=== PATIENT | female | born 1960 | race Caucasian/White ===

== ENCOUNTER 2016-03-12 11:19 | Emergency (ER) | payer OTHER ==
[~2016-03-12] VITALS: Ht 162.6 cm; Wt 64.0 kg
[~2016-03-12 11:19] MED LIST: GEOD60CA PO; HYDR12.57 PO; LAMI200T PO; LORA-474 PO; PROZ20CA11 PO; RISP1 PO; TRAZ100T4 PO; TRAZ50TA12 PO; ZYPR10TA PO
[2016-03-12 11:25] VITALS: BP 112/70; PULSE 89; RESP 16; TEMP 97.8; O2SAT 95
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
[2016-03-12 12:41] LABS: AUTOMATED NEUTROPHIL # 3.1 TH/MM3 (1.8-7.7); BASOPHIL % 0.7 % (0.0-2.0); EOSINOPHIL # 0.2 TH/MM3 (0-0.4); EOSINOPHIL % 3.2 % (0.0-4.0); HEMATOCRIT 40.5 % (35.0-46.0); HEMO FLAGS DIFF FINAL; LYMPH % 21.6 % (9.0-44.0); LYMPHOCYTE # 1.1 TH/MM3 (1.0-4.8); MEAN CELL VOLUME 87.3 FL (80.0-100.0); MEAN CORPUSCULAR HEMOGLOBIN 30.1 PG (27.0-34.0); MEAN CORPUSCULAR HGB CONC 34.5 % (32.0-36.0); MONO % 11.8 % (0.0-8.0); NEUT % 62.7 % (16.0-70.0); PLATELET COUNT 255 TH/MM3 (150-450); RED BLOOD COUNT 4.64 MIL/MM3 (4.00-5.30); RED CELL DISTRIBUTION WIDTH 13.4 % (11.6-17.2)
[2016-03-12 13:02] LABS: ANION GAP 6 MEQ/L (5-15)
[2016-03-12 13:06] LABS: ALKALINE PHOSPHATASE 51 U/L (45-117); ALT (GPT) 15 U/L (10-53); AST (GOT) 13 U/L (15-37); BICARBONATE 30.8 MEQ/L (21.0-32.0); BLOOD UREA NITROGEN 8 MG/DL (7-18); CHLORIDE 104 MEQ/L (98-107); GLOMERULAR FILTRATION RATE 66 ML/MIN (>89); POTASSIUM 3.6 MEQ/L (3.5-5.1); SODIUM (NA) 141 MEQ/L (136-145); TOTAL BILIRUBIN ADULT 0.3 MG/DL (0.2-1.0)
[2016-03-12 14:38] VITALS: BP 132/82; PULSE 74; RESP 18; TEMP 97.5; O2SAT 99
[2016-03-12 17:43] VITALS: BP 132/82; PULSE 74; RESP 18; O2SAT 99
== END 2016-03-12 19:05 | disposition home or self-care (01) ==
LOC: NEPJ 11:19
DX: F25.0 Schizoaffective disorder, bipolar type (principal); F41.8 Other specified anxiety disorders; F17.210 Nicotine dependence, cigarettes, uncomplicated
CPT/HCPCS: 80053; 80320; 85025; 99284

== ENCOUNTER 2016-03-19 08:55 | Emergency (ER) | payer OTHER ==
[~2016-03-19] VITALS: Ht 170.2 cm; Wt 70.0 kg
[2016-03-19 09:03] VITALS: BP 136/77; PULSE 81; RESP 17; TEMP 98.2; O2SAT 96
[2016-03-19 09:22] LABS: AUTOMATED NEUTROPHIL # 3.4 TH/MM3 (1.8-7.7); BASOPHIL % 0.4 % (0.0-2.0); EOSINOPHIL # 0.1 TH/MM3 (0-0.4); HEMATOCRIT 44.3 % (35.0-46.0); HEMO FLAGS DIFF FINAL; LYMPHOCYTE # 0.9 TH/MM3 (1.0-4.8); MEAN CELL VOLUME 87.8 FL (80.0-100.0); MEAN CORPUSCULAR HEMOGLOBIN 29.7 PG (27.0-34.0); MEAN CORPUSCULAR HGB CONC 33.8 % (32.0-36.0); MONO % 9.1 % (0.0-8.0); NEUT % 68.5 % (16.0-70.0); PLATELET COUNT 255 TH/MM3 (150-450); RED BLOOD COUNT 5.05 MIL/MM3 (4.00-5.30); RED CELL DISTRIBUTION WIDTH 13.6 % (11.6-17.2)
[2016-03-19 09:45] LABS: ALKALINE PHOSPHATASE 59 U/L (45-117); ALT (GPT) 17 U/L (10-53); ANION GAP 7 MEQ/L (5-15); AST (GOT) 23 U/L (15-37); BICARBONATE 28.6 MEQ/L (21.0-32.0); BLOOD UREA NITROGEN 8 MG/DL (7-18); CHLORIDE 103 MEQ/L (98-107); GLOMERULAR FILTRATION RATE 72 ML/MIN (>89); SODIUM (NA) 139 MEQ/L (136-145); TOTAL BILIRUBIN ADULT 0.4 MG/DL (0.2-1.0)
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
[2016-03-19] MEDS ORDERED: OLANZapine IM 10 MG VIAL IM ONE (13:00)
--- NOTE | 2016-03-19 13:08 | RADRPT ---
EXAM DATE/TIME: 03/19/2016 12:47 [facility] COMPARISON: CT BRAIN W/O CONTRAST, November 20, 2015, 12:40. INDICATIONS : Increasing falls, altered mental status. RADIATION DOSE: 35.34 CTDIvol (mGy) MEDICAL HISTORY : Cerebrovascular disease. Hypertension. SURGICAL HISTORY : None. ENCOUNTER: Initial ACUITY: 1 day PAIN SCALE: 0/10 LOCATION: cranial TECHNIQUE: Multiple contiguous axial images were obtained of the head. Using automated exposure control and adj ustment of the mA and/or kV according to patient size, radiation dose was kept as low as reasonably a chievable to obtain optimal diagnostic quality images. FINDINGS: CEREBRUM: The ventricles are normal for age. No evidence of midline shift, mass lesion, hemorrhage or acute in farction. No extra-axial fluid collections are seen. POSTERIOR FOSSA: The cerebellum and brainstem are intact. The 4th ventricle is midline. The cerebellopontine angle i s unremarkable. EXTRACRANIAL: The visualized portion of the orbits is intact. SKULL: The calvaria is intact. No evidence of skull fracture. CONCLUSION: Normal examination for a patient of this age. Gerri Hsu MD on March 19, 2016 at 13:07 Board Certified Radiologist. This report was verified electronically.
[2016-03-19 13:09] LABS: BLOOD, URINE NEG (NEG); GLUCOSE,URINE NEG (NEG); KETONE, URINE 80 mg/dL (NEG); NITRITE,URINE NEG (NEG); URINE COLOR YELLOW (YELLW/STRAW)
[2016-03-19 13:13] LABS: AMPHETAMINE, URINE NEG (NEG); BARBITURATES, URINE NEG (NEG); COCAINE, URINE NEG (NEG)
[2016-03-19] MEDS ORDERED: LORazepam 2 MG/ML VIAL IM ONE (13:15)
[2016-03-19 13:50] LABS: MUCUS URINE MOD /lpf (OCC); WBC, URINE 0-2 /hpf (0-5)
[2016-03-19 13:51] LABS: TRANSITIONAL EPI CELLS, URINE 0-5 /hpf
[2016-03-19 13:54] LABS: CULTURE IF INDICATED CULT NOT INDICATED
[2016-03-19 15:31] VITALS: BP 137/89; PULSE 73; RESP 17; O2SAT 98
== END 2016-03-19 19:00 | disposition home or self-care (01) ==
LOC: NEDAMB 08:55 → NEPJ 19:00
DX: S09.90XA Unspecified injury of head, initial encounter (principal); F31.9 Bipolar disorder, unspecified; F41.8 Other specified anxiety disorders; J44.9 Chronic obstructive pulmonary disease, unspecified; I10 Essential (primary) hypertension; F17.210 Nicotine dependence, cigarettes, uncomplicated; W19.XXXA Unspecified fall, initial encounter; Y92.009 Unspecified place in unspecified non-institutional (private) residence as the place of occurrence of the external cause; Z86.73 Personal history of transient ischemic attack (TIA), and cerebral infarction without residual deficits
CPT/HCPCS: 51702; 70450; 80053; 80307; 81001; 85025; 96372; 99285; J2060

== ENCOUNTER 2016-03-24 19:16 | Emergency (ER) | payer OTHER ==
[~2016-03-24] VITALS: Ht 170.2 cm; Wt 65.0 kg
[~2016-03-24 19:16] MED LIST changes: -TRAZ50TA12 PO
[2016-03-24 19:20] VITALS: BP 152/100; PULSE 81; RESP 16; TEMP 97.6
[2016-03-24] MEDS ORDERED: FUMARATE PO (19:33)
[2016-03-24] MEDS ORDERED: TRAZ100T4 PO (19:33)
[2016-03-24] MEDS ORDERED: QUET-86 PO (19:33)
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
[2016-03-24 20:13] LABS: BLOOD, URINE TRACE (NEG); COMMENT (UR) CULT NOT INDICATED; CULTURE IF INDICATED CULT NOT INDICATED; GLUCOSE,URINE NEG (NEG); KETONE, URINE 40 mg/dL (NEG); MUCUS URINE MANY /lpf (OCC); NITRITE,URINE NEG (NEG); SQUAMOUS EPITHELIAL CELL URINE 1 /hpf (0-5); URINE COLOR YELLOW (YELLW/STRAW)
[2016-03-24] MEDS ORDERED: OLANZapine IM 10 MG VIAL IM ONE (20:15)
[2016-03-24 20:18] LABS: AUTOMATED NEUTROPHIL # 3.2 TH/MM3 (1.8-7.7); BASOPHIL % 0.9 % (0.0-2.0); EOSINOPHIL # 0.1 TH/MM3 (0-0.4); EOSINOPHIL % 1.6 % (0.0-4.0); HEMATOCRIT 42.9 % (35.0-46.0); HEMO FLAGS DIFF FINAL; LYMPH % 26.1 % (9.0-44.0); LYMPHOCYTE # 1.4 TH/MM3 (1.0-4.8); MEAN CELL VOLUME 88.1 FL (80.0-100.0); MEAN CORPUSCULAR HEMOGLOBIN 29.5 PG (27.0-34.0); MEAN CORPUSCULAR HGB CONC 33.5 % (32.0-36.0); MONO % 10.8 % (0.0-8.0); NEUT % 60.6 % (16.0-70.0); PLATELET COUNT 295 TH/MM3 (150-450); RED BLOOD COUNT 4.87 MIL/MM3 (4.00-5.30); RED CELL DISTRIBUTION WIDTH 13.5 % (11.6-17.2); WHITE BLOOD COUNT 5.4 TH/MM3 (4.0-11.0)
--- NOTE | 2016-03-24 20:37 | RADRPT ---
EXAM DATE/TIME: 03/24/2016 20:31 [facility] COMPARISON: CT BRAIN W/O CONTRAST, March 19, 2016, 12:47. INDICATIONS : Altered mental status, hit head. RADIATION DOSE: 34.36 CTDIvol (mGy) MEDICAL HISTORY : Seizures. Stroke Hypertension.Traumatic brain injury. SURGICAL HISTORY : None. ENCOUNTER: Initial ACUITY: 1 day PAIN SCALE: 0/10 LOCATION: cranial TECHNIQUE: Multiple contiguous axial images were obtained of the head. Using automated exposure control and adjustment of the mA and/or kV according to patient size, radiation dose was kept as low as reasonably achievable to obtain optimal diagnostic quality images. FINDINGS: CEREBRUM: The ventricles are normal for age. No evidence of midline shift, mass lesion, hemorrha ge or acute infarction. No extra-axial fluid collections are seen. POSTERIOR FOSSA: The cerebellum and brainstem are intact. The 4th ventricle is midline. The cer ebellopontine angle is unremarkable. EXTRACRANIAL: The visualized portion of the orbits is intact. SKULL: The calvaria is intact. No evidence of skull fracture. CONCLUSION: Negative for acute process. Saúl Aguilar MD FACR on March 24, 2016 at 20:35 Board Certified Radiologist. This report was verified electronically.
[2016-03-24 20:49] LABS: AMPHETAMINE, URINE NEG (NEG); BARBITURATES, URINE NEG (NEG); COCAINE, URINE NEG (NEG)
[2016-03-24 20:50] LABS: ANION GAP 10 MEQ/L (5-15); BICARBONATE 26.5 MEQ/L (21.0-32.0); BLOOD UREA NITROGEN 9 MG/DL (7-18); CHLORIDE 102 MEQ/L (98-107); GLOMERULAR FILTRATION RATE 71 ML/MIN (>89); POTASSIUM 3.4 MEQ/L (3.5-5.1); SODIUM (NA) 138 MEQ/L (136-145)
[2016-03-24 21:00] VITALS: BP 148/90; PULSE 69; RESP 16; O2SAT 97
[2016-03-24] MEDS ORDERED: SODIUM CHLOR 0.9% 1000 ML INJ 1,000 ML IV ONE (21:00)
== END 2016-03-24 21:29 | disposition home or self-care (01) ==
LOC: NEPC 19:16
DX: F25.9 Schizoaffective disorder, unspecified (principal); J45.909 Unspecified asthma, uncomplicated; F41.8 Other specified anxiety disorders; J44.9 Chronic obstructive pulmonary disease, unspecified; I10 Essential (primary) hypertension; F17.210 Nicotine dependence, cigarettes, uncomplicated; Z91.14 Patient's other noncompliance with medication regimen
CPT/HCPCS: 70450; 80048; 80307; 80320; 81001; 85025; 96372; 99284; J7030

== ENCOUNTER 2016-03-25 11:55 | Emergency (ER) | payer OTHER ==
[~2016-03-25] VITALS: Ht 162.6 cm; Wt 57.0 kg
[~2016-03-25 11:55] MED LIST changes: +FUMARATE PO; -HYDR12.57 PO; -LORA-474 PO; -PROZ20CA11 PO; +QUET-86 PO; -RISP1 PO; -ZYPR10TA PO
[2016-03-25 12:00] VITALS: BP 142/101; PULSE 76; RESP 16; TEMP 99.1; O2SAT 98
--- NOTE | 2016-03-25 14:05 | PD ---
HPI Chief Complaint: Altered Mental Status Time Seen by Provider: 11:56 Travel History International Travel<30 days: No Contact w/Intl Traveler<30days: No Traveled to known affect area: No History of Present Illness HPI The 56-year-old woman who presents to the emergency department brought in by EMS for bizarre behavior. She has a history of traumatic brain injury as well as reportedly schizophrenia. History is mostly obtained from EMS crew coming from the . [place] like at baseline the patient's psychiatric symptoms wax and wane. Over the past several my she's been especially bizarre having unusual episodes of agitation and bizarre behavior. The describes that she was set for hours at a time with her hand over her left breast with her right arm up in the air. She saw her psychiatrist several days ago. He recommended multiple medication changes but the patient is not been taking most of them. Does not reports that she thinks she is making them in her car poisoning them and so she has not been taking them. She's been in the emergency department 3 times in March. She had CT imaging of her head twice, as well as laboratory studies. He feels like her medications need to be adjusted. History Past Medical History Narrative Medical Schizophrenia Traumatic brain injury PNEUMOCCOCAL Vaccine (Year): 1 Menopausal: Yes : 7 Para: 4 Social History Alcohol Use: No (DENIES) Tobacco Use: Yes (2 PPD) Allergies-Medications (Allergen,Severity, Reaction): Coded Allergies: No Known Allergies (Unverified , 03/25/16) Reported Meds & Prescriptions Reported Meds & Active Scripts Active Reported [Fumarate] 25 Mg PO DAILY Quetiapine ER (Quetiapine Fumarate) 50 Mg Tab 25 Mg PO HS Trazodone (Trazodone HCl) 100 Mg Tab 200 Mg PO HS Lamictal (Lamotrigine) 200 Mg Tab 200 Mg PO BID Geodon (Ziprasidone) 60 Mg Cap 60 Mg PO BID Review of Systems ROS Limitations: Clinical Condition Physical Exam Narrative GENERAL: 56-year-old woman, sitting comfortably in bed. Conversing. SKIN: Warm and dry. HEAD: Atraumatic. Normocephalic. EYES: Pupils equal and round. No scleral icterus. No injection or drainage. ENT: No nasal bleeding or discharge. Mucous membranes pink and moist. NECK: Trachea midline. No JVD. CARDIOVASCULAR: Regular rate and rhythm. No murmur appreciated. RESPIRATORY: No accessory muscle use. Clear to auscultation. Breath sounds equal bilaterally. GASTROINTESTINAL: Abdomen soft, non-tender, nondistended. Hepatic and splenic margins not palpable. MUSCULOSKELETAL: No obvious deformities. No clubbing. No cyanosis. No edema. NEUROLOGICAL: Awake and alert. Confused, bizarre. No obvious cranial nerve deficits. Motor grossly within normal limits. Normal speech. PSYCHIATRIC: Little bit disorganized. Data Data Last Documented VS Vital Signs Date Time Temp Pulse Resp B/P Pulse Ox O2 Delivery O2 Flow Rate FiO2 03/25/16 12:00 99.1 76 16 142/101 98 Orders Psych Screen (03/25/16 12:48) [facility] Medical Decision Making Medical Screen Exam Complete: Yes Emergency Medical Condition: Yes Differential Diagnosis Psychotic disease, traumatic brain injury, personality disorder, other Narrative Course Medical decision making 56-year-old presents emergency Department with bizarre behavior, history of TBI and schizophrenia. Multiple recent medical workups all negative. Referred back in for ongoing symptoms. Patient had labs and imaging done yesterday. Patient is medically clear for psychiatric evaluation. Patient was medically clear for psychiatric evaluation twice earlier in March. I don't see any notes from psychiatry. I spoke with the psych screener, she will have the psychiatrist see her here. FINAL: Mental screener evaluated the patient. They spoke with Dr. Gabriel. They feel that a lot of her behavior is attention seeking. Encouraged her to take her medicine. They spoke with the . They recommend discharge. Diagnosis Primary Impression: Schizoaffective disorder, chronic condition with acute exacerbation Disposition: 01 DISCHARGE HOME Condition: Stable Kentrell Torres MD Mar 25, 2016 14:05
== END 2016-03-25 15:54 | disposition home or self-care (01) ==
LOC: NEPC 11:55
DX: F25.8 Other schizoaffective disorders (principal); Z87.820 Personal history of traumatic brain injury; F17.210 Nicotine dependence, cigarettes, uncomplicated
CPT/HCPCS: 99284

== ENCOUNTER 2016-03-26 18:55 | Inpatient (IN) | payer OTHER, MEDICARE ==
[~2016-03-26] VITALS: Ht 162.6 cm; Wt 55.0 kg
[2016-03-26 19:13] VITALS: BP 122/76; PULSE 80; RESP 20; TEMP 98.2; O2SAT 98
[2016-03-26 20:04] LABS: AUTOMATED NEUTROPHIL # 3.9 TH/MM3 (1.8-7.7); BASOPHIL # 0.1 TH/MM3 (0-0.2); BASOPHIL % 0.9 % (0.0-2.0); EOSINOPHIL # 0.1 TH/MM3 (0-0.4); EOSINOPHIL % 2.2 % (0.0-4.0); HEMATOCRIT 42.5 % (35.0-46.0); HEMO FLAGS DIFF FINAL; LYMPH % 22.9 % (9.0-44.0); LYMPHOCYTE # 1.4 TH/MM3 (1.0-4.8); MEAN CELL VOLUME 87.5 FL (80.0-100.0); MEAN CORPUSCULAR HEMOGLOBIN 29.4 PG (27.0-34.0); MEAN CORPUSCULAR HGB CONC 33.6 % (32.0-36.0); PLATELET COUNT 264 TH/MM3 (150-450); RED BLOOD COUNT 4.86 MIL/MM3 (4.00-5.30); RED CELL DISTRIBUTION WIDTH 13.4 % (11.6-17.2)
[2016-03-26 20:31] LABS: ANION GAP 9 MEQ/L (5-15); AST (GOT) 9 U/L (15-37); BICARBONATE 26.5 MEQ/L (21.0-32.0); BLOOD UREA NITROGEN 20 MG/DL (7-18); CHLORIDE 104 MEQ/L (98-107); GLOMERULAR FILTRATION RATE 57 ML/MIN (>89); SODIUM (NA) 139 MEQ/L (136-145)
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
[2016-03-26 20:34] LABS: ALKALINE PHOSPHATASE 66 U/L (45-117); ALT (GPT) 16 U/L (10-53); TOTAL BILIRUBIN ADULT 0.3 MG/DL (0.2-1.0)
[2016-03-26] MEDS ORDERED: ZIPRASIDONE HCL 60 MG CAP PO ONE (20:45)
[2016-03-26 20:46] VITALS: BP 143/91; PULSE 83; RESP 20; O2SAT 95
[2016-03-26] MEDS ORDERED: POTASSIUM CHLORIDE 20 MEQ CONTROLLED RELEASE TAB PO ONE (22:00)
[2016-03-26] MEDS ORDERED: lamoTRIgine 100 MG TAB PO ONE (22:00)
[2016-03-26 22:19] VITALS: BP 108/65; PULSE 68; RESP 17; O2SAT 96
[2016-03-27 01:54] VITALS: BP 104/51; PULSE 71; RESP 16; O2SAT 98
[2016-03-27 05:14] LABS: AMPHETAMINE, URINE NEG (NEG); BARBITURATES, URINE NEG (NEG); COCAINE, URINE NEG (NEG)
[2016-03-27 06:29] VITALS: BP 116/66; PULSE 76; RESP 19; TEMP 98.9; O2SAT 98
[2016-03-27] MEDS: REMOVE OLD PATCH T-DERMAL SCH (09:00)
[2016-03-27] MEDS ORDERED: LORazepam 1 MG TAB PO PRN (09:00)
[2016-03-27] MEDS: ZIPRASIDONE HCL 60 MG CAP PO SCH ×2 (09:00→21:19)
[2016-03-27] MEDS ORDERED: ALUMINUM/MAGNESIUM/SIMETH 30 ML CUP PO PRN (09:00)
[2016-03-27] MEDS ORDERED: BENZTROPINE MESYLATE 2 MG/2 ML VIAL IM PRN (09:00)
[2016-03-27] MEDS ORDERED: BENZTROPINE MESYLATE 1 MG TAB PO PRN (09:00)
[2016-03-27] MEDS ORDERED: FUMARATE PO SCH (09:00)
[2016-03-27] MEDS ORDERED: ACETAMINOPHEN 325 MG TAB PO PRN ×2 (09:00→13:15)
[2016-03-27] MEDS: lamoTRIgine 100 MG TAB PO SCH ×2 (09:00→21:19)
[2016-03-27] MEDS ORDERED: diphenhydrAMINE HCL 50 MG CAP PO PRN (09:00)
[2016-03-27] MEDS ORDERED: MAGNESIUM HYDROXIDE SUSP 30 ML CUP PO PRN (09:00)
[2016-03-27] MEDS: NICOTINE 21 MG/24 HR PATCH T-DERMAL SCH (09:00)
[2016-03-27 10:33] VITALS: BP 127/78; PULSE 82; RESP 18; O2SAT 98
[2016-03-27 11:45] VITALS: BP 151/79; PULSE 84; RESP 16; TEMP 98.7; O2SAT 97
--- NOTE | 2016-03-27 13:27 | HHI.HP ---
Provisional Diagnosis Admission Date Mar 27, 2016 at 08:53 [place] I. Schizoaffective disorder bipolar type f 25.0 history traumatic brain injury z 87.820 Certification of Person's Competence To Provide Express and Informed Consent I have personally examined Shweta Martino , a person being served at [facility] on, Mar 27, 2016 13:07. Express and informed consent means consent voluntarily given in writing, by a competent person, after sufficient explanation and disclosure of the subject matter involved to enable the person to make a knowing and willful decision without any element of force, fraud, deceit, duress, or other form of constraint or coercion. This person is 18 years of age or older, is not now known to be incompetent to consent to treatment with a guardian advocate, and does not have a health care surrogate or proxy currently making medical treatment decisions. I have found this person to be one of the following: [] Competent to provide express and informed consent, as defined above, for voluntary admission to this facility and is competent to provide express and informed consent for treatment. He/she has the consistent capacity to make well reasoned, willful, and knowing decisions concerning his or her medical or mental health treatment. The person fully and consistently understands the purpose of the admission for examination/placement and is fully capable of personally exercising all rights assured [place] [] Incompetent to provide express and informed consent to voluntary admission, and this is incompetent to provide express and informed consent to treatment. The person must be transferred to involuntary status and a petition for a guardian advocate filed with the Circuit Court. [x] Refusing to provide express and informed consent to voluntary admission but is competent to provide express and informed consent for treatment. The person must be discharged or transferred to involuntary status. Form shall be completed within 24 hours of a person's arrival at the receiving facility and filed in the clinical record of each person: 1. Admitted on a voluntary basis 2. Permitted to provide express and informed consent to his/her own treatment 3. Allowed to transfer from involuntary to voluntary status 4. Prior to permitting a person to consent to his or her own treatment after having been previously found incompetent to consent to treatment. History of Present Illness Capacity: Has Capacity HPI Patient is a 56-year-old white female who comes here under Brennan act by the [employer] dated 2016 7:08 PM stating per Shweta's Michael Estrada she has been falling and throwing herself on the ground purposefully, she has been acting unusually aggressive towards him. She also has an unexplained injury to her eye that is suspected to be self- inflicted. Patient seen screened in the ED urine toxicology positive for benzodiazepines and negative for alcohol. There is no imaging studies done in the ED. Upon review of EMR and as noted patient was admitted under my service 02/17/16 through 02/23/16 visited [id number]. She is also had visits to the emergency department noted on 03/12/16 03/19/16 03/24/16 and 03/25/16 all with similar complaints. Patient does have a psychiatrist she states she saw about 2 days ago. The me about some medication adjustment. At the present time patient sitting quietly in the room nurse Delonte present throughout the session. Patient did recognize me from prior visit. She is somewhat anxious with her requesting that she go home because everything is "all right" now. There is some confusion and gaps in memory related to the above visits and situation, she does state though that she feels her thoughts are racing. Patient showing no insight into being able to correlate these visits. Patient has of marked fixation on the certain doses of her Lamictal and Seroquel, with a marked resistance to considering adjustments in the dosage. Patient is noted to have a significant ecchymotic area over her right eye and orbit that she does not know how she received. She denies suicidality homicidality voices or visions. Though there is some significant thought blocking noted in her responses, and also appears at times if she is distracted by internal stimuli. She states her relationship with her is fine. In past visits here showed some paranoia and delusional ideation towards him. In any event at the present time patient does meet criteria for acute inpatient psychiatric hospitalization under the Brennan act I'll do first opinion requests a second opinion. I also feel that this time patient may have capacity to sign for medications. We'll have a counselors contact the patient's attempt to arrange a family meeting for tomorrow morning. Pulses appear fairly short stay and patient can return to her home Review of Systems ROS Limitations: Other Except as stated in HPI: all other systems reviewed are Neg (history traumatic brain injury) Past Psych History Psychological trauma history Patient denies Violence risk - others (6 mos) Low Violence risk - self (6 mos) Low though it appears patient has done some self-injurious injuries to herself Substance Abuse History Drugs/Alcohol past 12 months Denies Past Family Social History Coded Allergies: No Known Allergies (Unverified , 03/25/16) Past Medical History See MedSurg assessments history of TBI Reported Medications [Fumarate] No Conflict Check25 Mg PO DAILY 03/24/16 Quetiapine ER 50 Mg Tab25 Mg PO HS #30 TAB Ref 0 03/24/16 Trazodone 100 Mg Qdk340 Mg PO HS #30 TAB Ref 0 03/24/16 Lamotrigine (Lamictal)200 Mg Qdj103 Mg PO BID #60 TAB Ref 0 02/20/16 Ziprasidone (Geodon)60 Mg Cap60 Mg PO BID #60 CAP Ref 0 02/17/16 Discontinued Reported Medications Hydrochlorothiazide 12.5 Mg Cap12.5 Mg PO DAILY #30 CAP Ref 0 02/20/16 Olanzapine (Zyprexa)10 Mg Tab10 Mg PO DAILY #30 TAB Ref 0 02/17/16 Fluoxetine (Prozac)20 Mg Cap20 Mg PO DAILY #30 CAP Ref 0 02/17/16 Discontinued Scripts Trazodone 100 Mg Mgp924 Mg PO HS #30 TAB Ref 0 Prov:Nino Gabriel MD 02/23/16 Risperidone (Risperdal)1 Mg Tab1 Mg PO BID #60 TAB Ref 0 Prov:Nino Gabriel MD 02/23/16 Lorazepam (Ativan)1 Mg Tab1 Mg PO TID PRN (MODERATE TO SEVERE ANXIETY) #30 TAB Ref 0 Prov:Nino Gabriel MD 02/23/16 Current Medications Medications (Trade) Dose Ordered Sig/Key Route Start Time Stop Time Status Last Admin (Ativan) 1 mg Q6H PRN PO 03/27/16 09:00 (Ativan Inj) 1 mg Q6H PRN IM 03/27/16 09:00 (Benadryl) 50 mg HS PRN PO 03/27/16 09:00 (Tylenol) 650 mg Q4H PRN PO 03/27/16 09:00 (Milk Of Magnesia Liq) 30 ml DAILY PRN PO 1/18/17 09:00 (Mag-Al Plus Susp Liq) 30 ml Q6H PRN PO 03/27/16 09:00 (Habitrol 21 Mg Patch.24 Hr) 1 patch DAILY T-DERMAL 03/27/16 09:00 (Cogentin) 1 mg Q12H PRN PO 03/27/16 09:00 (Cogentin Inj) 1 mg Q12H PRN IM 03/27/16 09:00 Miscellaneous Information 1 DAILY T-DERMAL 03/27/16 09:00 (LaMICtal) 200 mg BID PO 03/27/16 09:00 03/27/16 09:00 (Desyrel) 200 mg HS PO 03/27/16 21:00 (Geodon) 60 mg BID PO 03/27/16 09:00 03/27/16 09:00 (SEROquel) 25 mg HS PO 03/27/16 21:00 (Tylenol) 650 mg Q4H PRN PO 03/27/16 13:15 UNV Family History None noted at this time Social History Patient lives with Patient's Strengths (min. 2) Patient verbal able to access health care Physical Exam Patient seen screened in ED exam reviewed and agreed with vital signs blood pressure 151/79 pulse 84 respirations 16 Vital Signs Vital Signs Date Time Temp Pulse Resp B/P Pulse Ox O2 Delivery O2 Flow Rate FiO2 03/27/16 11:45 98.7 84 16 151/79 97 03/27/16 10:33 Room Air Mental Status Examination Alert oriented but appearing somewhat diffusely confused white female appears stated age with poor eye contact thought blocking and distractibility Appearance Somewhat disheveled with ecchymotic area over her right eye Speech: Rapid, Hesitant Orientation: x3 Memory: Impaired (describe) Thought Process: Linear Thought Content: Unremarkable Hallucination Type: Auditory (patient denies that appears to be responding to internal stimuli) Attention and Concentration: Easily Distracted Suicidal Ideation: No Previous Suicide Attempts: No Homicidal Ideation: No Previous Homicide Attempts: No Insight: Poor Judgement: Poor Affect: Other (decreased range and intensity) Mood: Other (restricted, mildly dysphoric) Motor Activity: Normal gait Assessment & Plan Problem List: (1) Schizoaffective disorder, bipolar type ICD Code: F25.0 (2) History of traumatic brain injury ICD Code: Z87.820 Assessment & Plan Estimated LOS: 5-7 days patient does meet criteria for involuntary psychiatric hospitalization at this time I'll do first opinion requests second opinion. Will also have a counselor attempt to contact patient's arrange for a family meeting tomorrow morning if at all possible, we'll continue medications per the med reconciliation Discharge Planning To be determined Request HC Surrog/Guard Advoc?: No Nino Gabriel MD Mar 27, 2016 13:26
[2016-03-27 19:00] VITALS: BP 111/75; PULSE 68; RESP 16; TEMP 98.2
[2016-03-27] MEDS: traZODone HCL 100 MG TAB PO SCH (21:00)
[2016-03-27] MEDS: QUEtiapine FUMARATE 25 MG TAB PO SCH (21:00)
[2016-03-28 06:30] VITALS: BP 138/68; PULSE 89; RESP 16; TEMP 97.3; O2SAT 100
[2016-03-28] MEDS: lamoTRIgine 100 MG TAB PO SCH ×3 (09:00→21:10)
[2016-03-28] MEDS: NICOTINE 21 MG/24 HR PATCH T-DERMAL SCH (09:00)
[2016-03-28] MEDS: ZIPRASIDONE HCL 60 MG CAP PO SCH ×3 (09:00→21:10)
[2016-03-28] MEDS: REMOVE OLD PATCH T-DERMAL SCH (09:00)
[2016-03-28] MEDS: LORazepam 2 MG/ML VIAL IM PRN (12:39)
--- NOTE | 2016-03-28 13:22 | HHI.PYPN ---
Subjective Remarks Met with patient's Michael, discussed patient's recent behaviors and behaviors leading to this hospitalization. He is concerned about and what he perceives as a marked deterioration in her mental status and behavior becoming louder more irritable with some delusional focus towards him. Patient later seen on the unit, continues intrusive markedly confused disoriented and perseverative needing repeated directions and interventions. Patient also noted to be somewhat unstable on her feet sometimes moving towards her left. Patient is compliant medications at this time. Though continues to perseveratively ask for discharge Review of Systems Except as stated in HPI: all other systems reviewed are Neg Objective Alert: Yes [place]: Person, Place Mood: Agitated, Anxious Affect: Labile Memory Intact: Comment (very poor) Hallucinations: Other (denies) Delusions: Yes Delusion Type: Paranoid Suicidal: Ideation (denies) Homicidal: Ideation Insight/Judgement Very poor Vitals/IOs Vital Signs Date Time Temp Pulse Resp B/P Pulse Ox O2 Delivery O2 Flow Rate FiO2 03/28/16 06:30 97.3 89 16 138/68 100 03/27/16 10:33 Room Air Intake and Output 03/27/16 03/27/16 03/28/16 08:00 16:00 00:00 Intake Total 600 ml 120 ml Balance 600 ml 120 ml Assessment & Plan Problem List: (1) Schizoaffective disorder, bipolar type ICD Code: F25.0 (2) History of traumatic brain injury ICD Code: Z87.820 Assessment & Plan Estimated LOS: days patient continues markedly confused and psychotic, no insight, though compliant with medications at this time Justification for Cont. Inpt. At this time patient would significantly decompensated placed in a lower level of care Discharge Planning To be determined Request HC Surrog/Guard Advoc?: No Nino Gabriel MD Mar 28, 2016 13:22
--- NOTE | 2016-03-28 13:28 | PD.CONS ---
Provisional Diagnosis Admission Date Mar 27, 2016 at 08:53 [place] I. 1. Schizoaffective disorder, bipolar type 2. History of traumatic brain injury [place] II. Deferred [place] V. GAF is 35 presently History of Present Illness Service Psychiatry Consult Requested By Dr. Gabriel Reason for Consult Second opinion Primary Care Physician Unknown HPI From Dr. Gabriel's H&P: Patient is a 56-year-old white female who comes here under Brennan act by the [place] [employer] dated 2016 7:08 PM stating per Shweta's Michael Estrada she has been falling and throwing herself on the ground purposefully, she has been acting unusually aggressive towards him. She also has an unexplained injury to her eye that is suspected to be self- inflicted. Patient seen screened in the ED urine toxicology positive for benzodiazepines and negative for alcohol. There is no imaging studies done in the ED. Upon review of EMR and as noted patient was admitted under my service 02/17/16 through 02/23/16 visited [id number]. She is also had visits to the emergency department noted on 03/12/16 03/19/16 03/24/16 and 03/25/16 all with similar complaints. Patient does have a psychiatrist she states she saw about 2 days ago. The me about some medication adjustment. At the present time patient sitting quietly in the room nurse Delonte present throughout the session. Patient did recognize me from prior visit. She is somewhat anxious with her requesting that she go home because everything is "all right" now. There is some confusion and gaps in memory related to the above visits and situation, she does state though that she feels her thoughts are racing. Patient showing no insight into being able to correlate these visits. Patient has of marked fixation on the certain doses of her Lamictal and Seroquel, with a marked resistance to considering adjustments in the dosage. Patient is noted to have a significant ecchymotic area over her right eye and orbit that she does not know how she received. She denies suicidality homicidality voices or visions. Though there is some significant thought blocking noted in her responses, and also appears at times if she is distracted by internal stimuli. She states her relationship with her is fine. In past visits here showed some paranoia and delusional ideation towards him. In any event at the present time patient does meet criteria for acute inpatient psychiatric hospitalization under the Brennan act I'll do first opinion requests a second opinion. I also feel that this time patient may have capacity to sign for medications. We'll have a counselors contact the patient's attempt to arrange a family meeting for tomorrow morning. Pulses appear fairly short stay and patient can return to her home On my examination today: Patient seen and examined. Chart reviewed. Case discussed with nursing staff. On my examination today, I find the patient running up to the exit door and banging on it trying to get out. When I explained the purpose of the second opinion she screams "no! I'm feeling better. I feel fine." Patient denies any SI or HI but it is not clear that she is reliable to contract for safety. She denies AVH but appears internally preoccupied. No issues with mood noted. I do note that she has a black eye and when I ask her about this she says "I was praying to God and She put it on my face." Past psychiatric history: Patient is likely an unreliable historian. She reports "I tried to slit my wrists and swallow pills." I note the patient was admitted most recently here in mid February and has had several ED visits for psychiatric complaints since then. Family history: Patient denies any family history of mental illness. Chemical dependency history: Patient denies any history of abuse of drugs or alcohol. Social history: Patient reports that she lives with her of 13 years. She says that she has 3 sons and a daughter. She is high school educated and also went to school to be a [employer]IENT [employer]. She denies any or legal history. Review of Systems ROS Limitations: Psychotic, Poor Historian Other No physical complaints today. Past Family Social History Coded Allergies: No Known Allergies (Unverified , 03/25/16) Past Medical History See electronic medical record Reported Medications [Fumarate] No Conflict Check25 Mg PO DAILY 03/24/16 Quetiapine ER 50 Mg Tab25 Mg PO HS #30 TAB Ref 0 03/24/16 Trazodone 100 Mg Ojb418 Mg PO HS #30 TAB Ref 0 03/24/16 Lamotrigine (Lamictal)200 Mg Zqo544 Mg PO BID #60 TAB Ref 0 02/20/16 Ziprasidone (Geodon)60 Mg Cap60 Mg PO BID #60 CAP Ref 0 02/17/16 Discontinued Reported Medications Hydrochlorothiazide 12.5 Mg Cap12.5 Mg PO DAILY #30 CAP Ref 0 02/20/16 Olanzapine (Zyprexa)10 Mg Tab10 Mg PO DAILY #30 TAB Ref 0 02/17/16 Fluoxetine (Prozac)20 Mg Cap20 Mg PO DAILY #30 CAP Ref 0 02/17/16 Discontinued Scripts Trazodone 100 Mg Led904 Mg PO HS #30 TAB Ref 0 Prov:Nino Gabriel MD 02/23/16 Risperidone (Risperdal)1 Mg Tab1 Mg PO BID #60 TAB Ref 0 Prov:Nino Gabriel MD 02/23/16 Lorazepam (Ativan)1 Mg Tab1 Mg PO TID PRN (MODERATE TO SEVERE ANXIETY) #30 TAB Ref 0 Prov:Nino Gabriel MD 02/23/16 Current Medications Medications (Trade) Dose Ordered Sig/Key Route Start Time Stop Time Status Last Admin (Ativan) 1 mg Q6H PRN PO 03/27/16 09:00 (Ativan Inj) 1 mg Q6H PRN IM 03/27/16 09:00 03/28/16 12:39 (Benadryl) 50 mg HS PRN PO 03/27/16 09:00 (Tylenol) 650 mg Q4H PRN PO 03/27/16 09:00 (Milk Of Magnesia Liq) 30 ml DAILY PRN PO 03/27/16 09:00 (Mag-Al Plus Susp Liq) 30 ml Q6H PRN PO 03/27/16 09:00 (Habitrol 21 Mg Patch.24 Hr) 1 patch DAILY T-DERMAL 03/27/16 09:00 (Cogentin) 1 mg Q12H PRN PO 03/27/16 09:00 (Cogentin Inj) 1 mg Q12H PRN IM 03/27/16 09:00 Miscellaneous Information 1 DAILY T-DERMAL 03/27/16 09:00 (LaMICtal) 200 mg BID PO 03/27/16 09:00 03/28/16 09:00 (Desyrel) 200 mg HS PO 03/27/16 21:00 (Geodon) 60 mg BID PO 03/27/16 09:00 03/28/16 09:00 (SEROquel) 25 mg HS PO 03/27/16 21:00 Family History See above Social History See above Patient's Strengths (min. 2) In a monitored setting. Verbally fluent. Physical Exam A physical examination was completed in the emergency room by the ER staff. On my examination today, the patient has a black eye on the right as I said. No other signs of trauma noted. No motoric abnormalities noted. Labs and vital signs reviewed. Vital Signs Vital Signs Date Time Temp Pulse Resp B/P Pulse Ox O2 Delivery O2 Flow Rate FiO2 03/28/16 06:30 97.3 89 16 138/68 100 03/27/16 10:33 Room Air I/O 03/27/16 03/27/16 03/28/16 08:00 16:00 00:00 Intake Total 600 ml 120 ml Balance 600 ml 120 ml Lab Results Item Value Date Time White Blood Count 6.0 TH/MM3 03/26/161954 Hemoglobin 14.3 GM/DL 03/26/161954 Platelet Count 264 TH/MM3 03/26/161954 Sodium Level 139 MEQ/L 03/26/161954 Potassium Level 3.0 MEQ/L L 03/26/161954 Chloride Level 104 MEQ/L 03/26/161954 Carbon Dioxide Level 26.5 MEQ/L 03/26/161954 Blood Urea Nitrogen 20 MG/DL H # 03/26/161954 Estimat Glomerular Filtration Rate 57 ML/MIN L 03/26/161954 Creatinine 1.00 MG/DL 03/26/161954 Aspartate Amino Transf (AST/SGOT) 9 U/L L 03/26/161954 Alanine Aminotransferase (ALT/SGPT) 16 U/L 03/26/161954 Alkaline Phosphatase 66 U/L 03/26/161954 Urine Benzodiazepines Screen POS H 03/27/16 0435 Ethyl Alcohol Level LESS THAN 3 MG/DL 03/26/161954 Mental Status Examination Patient is in hospital gown. She is somewhat disheveled. She is awake and alert and oriented to [facility], [facility]. Registration is 3 out of 3 but recall is 0 out of 3 at 3 minutes. She is able to spell the word world forwards but misses the R when spelling it backwards. She is able to name one of 2 items. She is unable to repeat a phrase. Speech is somewhat rambling but within normal limits for rate, tone and volume. Mood and affect are somewhat dysphoric. Thought process somewhat disorganized. No juany delusions. Appears somewhat internally preoccupied. No SI or HI voiced. Insight and judgment are poor. Assessment & Plan Problem List: (1) Schizoaffective disorder, bipolar type ICD Code: F25.0 (2) History of traumatic brain injury ICD Code: Z87.820 Assessment & Plan Given the circumstances of patient's presentation here and her presentation on my examination today, I concur with Dr. Gabriel that the patient meets criteria for involuntary psychiatric hospitalization under the Brennan act. I've completed the second opinion paperwork. Further care as per Dr. Gabriel. Thank you very much for this consultation. Signing off. Eliazar Cobb MD Mar 28, 2016 13:28
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
[2016-03-28 18:56] VITALS: BP 130/73; PULSE 72; RESP 15; TEMP 98.8; O2SAT 98
[2016-03-28 19:30] VITALS: BP 130/75; PULSE 72; RESP 15; TEMP 98.8; O2SAT 98
[2016-03-28] MEDS: traZODone HCL 100 MG TAB PO SCH ×2 (21:00→21:10)
[2016-03-28] MEDS: QUEtiapine FUMARATE 25 MG TAB PO SCH ×2 (21:00→21:10)
[2016-03-29 06:34] VITALS: BP 136/85; PULSE 89; RESP 17; TEMP 98.4; O2SAT 94
[2016-03-29 08:13] LABS: ANION GAP 9 MEQ/L (5-15); BICARBONATE 26.5 MEQ/L (21.0-32.0); BLOOD UREA NITROGEN 13 MG/DL (7-18); CHLORIDE 103 MEQ/L (98-107); GLOMERULAR FILTRATION RATE 62 ML/MIN (>89); HDL CHOLESTEROL 55.3 MG/DL (40.0-60.0); LDL CHOLESTEROL 102 MG/DL (0-99); MAGNESIUM 2.3 MG/DL (1.5-2.5); POTASSIUM 3.5 MEQ/L (3.5-5.1); SODIUM (NA) 138 MEQ/L (136-145)
[2016-03-29] MEDS: ZIPRASIDONE HCL 60 MG CAP PO SCH ×2 (08:51→21:00)
[2016-03-29] MEDS: lamoTRIgine 100 MG TAB PO SCH ×2 (08:52→21:00)
[2016-03-29] MEDS: REMOVE OLD PATCH T-DERMAL SCH (09:00)
[2016-03-29] MEDS: NICOTINE 21 MG/24 HR PATCH T-DERMAL SCH (09:17)
--- NOTE | 2016-03-29 13:40 | HHI.PYPN ---
Subjective Remarks Patient seen in day room with nurse Liz, chart reviewed. Patient blaine mixed compliance with medication, continues no insight into her disease saying that she is going all right now and that she will behave, but she wishes to be discharged. That she wishes me to open the door in the day room to allow her to leave. Patient has been refusing meals past 24 hours, will encourage cooperation with that. I also had a telephone call with patient's after visiting with the patient is concerned about her oral intake I shared with him that we are encouraging cooperation with that and monitoring her. For now continue treatment Review of Systems Except as stated in HPI: all other systems reviewed are Neg Objective Alert: Yes [place]: Person, Place Mood: Agitated, Anxious Affect: Labile Memory Intact: Comment (very poor) Hallucinations: Other (denies) Delusions: Yes Delusion Type: Paranoid Suicidal: Ideation (denies) Homicidal: Ideation Insight/Judgement Very poor Labs Test 03/29/16 06:37 Sodium Level 138 MEQ/L Potassium Level 3.5 MEQ/L Chloride Level 103 MEQ/L Carbon Dioxide Level 26.5 MEQ/L Anion Gap 9 MEQ/L Blood Urea Nitrogen 13 MG/DL Creatinine 0.93 MG/DL Estimat Glomerular Filtration 62 ML/MIN Rate Random Glucose 88 MG/DL Calcium Level 8.7 MG/DL Magnesium Level 2.3 MG/DL Triglycerides Level 91 MG/DL Cholesterol Level 175 MG/DL LDL Cholesterol 102 MG/DL HDL Cholesterol 55.3 MG/DL Cholesterol/HDL Ratio 3.16 RATIO Vitals/IOs Vital Signs Date Time Temp Pulse Resp B/P Pulse Ox O2 Delivery O2 Flow Rate FiO2 03/29/16 06:34 98.4 89 17 136/85 94 03/27/16 10:33 Room Air Intake and Output 03/28/16 03/28/16 03/29/16 08:00 16:00 00:00 Intake Total 990 ml Balance 990 ml Assessment & Plan Problem List: (1) Schizoaffective disorder, bipolar type ICD Code: F25.0 (2) History of traumatic brain injury ICD Code: Z87.820 Assessment & Plan Estimated LOS: days patient continues confused psychotic markedly disorganized , for now continue treatment Justification for Cont. Inpt. At this time patient would significantly decompensate if placed in a lower level of care Discharge Planning To be determined Nino Gabriel MD 20, 2017 13:40
[2016-03-29] MEDS: LORazepam 2 MG/ML VIAL IM PRN (14:03)
[2016-03-29 16:08] LABS: HEMOGLOBIN A1b 0.7 %; HEMOGLOBIN Ao 86.5 %; HEMOGLOBIN F 0.8 %; HEMOGLOBIN LA1C 1.8 %; HEMOGLOBIN P3 3.6 %
[2016-03-29 18:00] VITALS: BP 130/78; PULSE 75; RESP 17; TEMP 98; O2SAT 97
[2016-03-29] MEDS: traZODone HCL 100 MG TAB PO SCH (21:00)
[2016-03-29] MEDS: QUEtiapine FUMARATE 25 MG TAB PO SCH (21:00)
[2016-03-30] MEDS: LORazepam 2 MG/ML VIAL IM PRN ×2 (00:25→20:31)
[2016-03-30 05:33] VITALS: BP 160/85; PULSE 92; RESP 18; TEMP 98.2; O2SAT 97
[2016-03-30] MEDS: lamoTRIgine 100 MG TAB PO SCH ×2 (09:00→20:24)
[2016-03-30] MEDS: NICOTINE 21 MG/24 HR PATCH T-DERMAL SCH (09:00)
[2016-03-30] MEDS: REMOVE OLD PATCH T-DERMAL SCH (09:00)
[2016-03-30] MEDS: ZIPRASIDONE HCL 60 MG CAP PO SCH ×2 (09:00→20:24)
--- NOTE | 2016-03-30 14:57 | HHI.PYPN ---
Subjective Remarks Pt seen and discussed with staff. Pt remains delusional and has been telling staff that her is inviting the [facility] and [employer]'s quarterback Carlos Bey to her birthday constitution party. She refused medications this morning stating that God told her that she was healed and didn't need medications. She tells "Andrew said I didn't have to talk to no doctors anymore!" Staff report exit seeking behaviors. No SI/HI Review of Systems Psychiatric: COMPLAINS OF: Delusions Objective Alert: Yes [place]: Person, Place Mood: Agitated, Anxious Affect: Labile Memory Intact: Comment (very poor) Hallucinations: Other (denies) Delusions: Yes Delusion Type: Paranoid Suicidal: Ideation (denies) Homicidal: Ideation Insight/Judgement poor Vitals/IOs Vital Signs Date Time Temp Pulse Resp B/P Pulse Ox O2 Delivery O2 Flow Rate FiO2 03/30/16 05:33 98.2 92 18 160/85 97 03/27/16 10:33 Room Air Intake and Output 03/29/16 03/29/16 03/30/16 08:00 16:00 00:00 Intake Total 242 ml 242 ml 720 ml Balance 242 ml 242 ml 720 ml Assessment & Plan Problem List: (1) Schizoaffective disorder, bipolar type ICD Code: F25.0 (2) History of traumatic brain injury ICD Code: Z87.820 Assessment & Plan Continue to encourage compliance. Continue current tx plan. Estimated LOS: days Justification for Cont. Inpt. impairments in reality construction Corine Hernandez MD Mar 30, 2016 14:57
[2016-03-30 20:00] VITALS: BP 168/77; PULSE 74; RESP 18; TEMP 98.2
[2016-03-30] MEDS: traZODone HCL 100 MG TAB PO SCH (20:24)
[2016-03-30] MEDS: QUEtiapine FUMARATE 25 MG TAB PO SCH (20:24)
[2016-03-31 05:41] VITALS: BP 109/65; PULSE 67; RESP 18; TEMP 98; O2SAT 97
[2016-03-31] MEDS: NICOTINE 21 MG/24 HR PATCH T-DERMAL SCH (09:00)
[2016-03-31] MEDS: REMOVE OLD PATCH T-DERMAL SCH (09:00)
[2016-03-31] MEDS: ZIPRASIDONE HCL 60 MG CAP PO SCH ×2 (09:34→21:31)
[2016-03-31] MEDS: lamoTRIgine 100 MG TAB PO SCH ×2 (09:34→21:32)
--- NOTE | 2016-03-31 15:23 | HHI.PYPN ---
Subjective Remarks Pt seen and discussed with staff. She was compliant with medication today with RN encouragement. Pt remains psychotic and was posturing and non-responsive in manner consistent with catatonia. Pt was given ativan and catatonia resolved. No SI/HI Remains religiously preoccupied. Objective Alert: Yes [place]: Person, Place Mood: Depressed, Other Affect: Blunted Memory Intact: Comment (very poor) Hallucinations: Other (appears internally stimulated) Delusions: Yes Delusion Type: Paranoid Suicidal: Ideation (denies) Homicidal: Ideation Insight/Judgement poor Vitals/IOs Vital Signs Date Time Temp Pulse Resp B/P Pulse Ox O2 Delivery O2 Flow Rate FiO2 03/31/16 05:41 98.0 67 18 109/65 97 03/27/16 10:33 Room Air Intake and Output 03/30/16 03/30/16 03/31/16 08:00 16:00 00:00 Intake Total 120 ml 120 ml 240 ml Balance 120 ml 120 ml 240 ml Assessment & Plan Problem List: (1) Schizoaffective disorder, bipolar type ICD Code: F25.0 (2) History of traumatic brain injury ICD Code: Z87.820 Assessment & Plan Continue to encourage medication compliance. Estimated LOS: days Justification for Cont. Inpt. impairments in reality construction. Corine Hernandez MD Mar 31, 2016 15:23
[2016-03-31 19:59] VITALS: BP 135/83; PULSE 76; RESP 17; TEMP 98.4; O2SAT 99
[2016-03-31] MEDS: traZODone HCL 100 MG TAB PO SCH (21:31)
[2016-03-31] MEDS: QUEtiapine FUMARATE 25 MG TAB PO SCH (21:32)
[2016-04-01 05:17] VITALS: BP 98/56; PULSE 73; RESP 16; TEMP 97.9; O2SAT 97
[2016-04-01] MEDS: lamoTRIgine 100 MG TAB PO SCH (08:22)
[2016-04-01] MEDS: NICOTINE 21 MG/24 HR PATCH T-DERMAL SCH (08:23)
[2016-04-01] MEDS: REMOVE OLD PATCH T-DERMAL SCH (08:23)
[2016-04-01] MEDS: ZIPRASIDONE HCL 60 MG CAP PO SCH (08:23)
[2016-04-01] MEDS ORDERED: LAMO100 PO (13:05)
[2016-04-01] MEDS ORDERED: GEOD80CA PO (13:05)
[2016-04-01] MEDS ORDERED: TRAZ150T75 PO (13:05)
[2016-04-01] MEDS ORDERED: QUET1TAB7 PO (13:05)
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
[2016-04-01 13:32] VITALS: BP 115/70; PULSE 86; RESP 18; TEMP 97.6; O2SAT 98
== END 2016-04-01 15:20 | disposition home or self-care (01) | DRG 885 ==
LOC: NEPJ 18:55 → NEDA 03-27 08:53 → H250 03-27 11:45
PROVIDERS: ADMIT Psychiatry & Neurology Psychiatry; ATTEND Psychiatry & Neurology Psychiatry
DX: F25.0 Schizoaffective disorder, bipolar type (principal); I10 Essential (primary) hypertension; F41.9 Anxiety disorder, unspecified; F17.210 Nicotine dependence, cigarettes, uncomplicated; F43.10 Post-traumatic stress disorder, unspecified; S00.11XA Contusion of right eyelid and periocular area, initial encounter; F12.90 Cannabis use, unspecified, uncomplicated; J45.909 Unspecified asthma, uncomplicated; K21.9 Gastro-esophageal reflux disease without esophagitis; Z87.820 Personal history of traumatic brain injury; X83.8XXA Intentional self-harm by other specified means, initial encounter; Y93.9 Activity, unspecified; Y92.9 Unspecified place or not applicable
CPT/HCPCS: 80048; 80053; 80061; 80175; 80307; 80320; 83036; 83735; 85025; 99284; J2060; Q0163

== ENCOUNTER 2016-04-08 21:07 | Inpatient (IN) | payer OTHER, MEDICARE ==
[~2016-04-08] VITALS: Ht 160 cm; Wt 53.7 kg
[~2016-04-08 21:07] MED LIST changes: +GEOD80CA PO; -LAMI200T PO; +LAMO100 PO; -QUET-86 PO; +QUET1TAB7 PO; +TRAZ150T75 PO
[2016-04-08 21:40] VITALS: BP 144/95; PULSE 73; RESP 16; TEMP 98.2; O2SAT 96
[2016-04-08 22:24] LABS: AUTOMATED NEUTROPHIL # 3.3 TH/MM3 (1.8-7.7); BASOPHIL % 0.8 % (0.0-2.0); EOSINOPHIL # 0.1 TH/MM3 (0-0.4); EOSINOPHIL % 1.8 % (0.0-4.0); HEMATOCRIT 40.7 % (35.0-46.0); HEMO FLAGS DIFF FINAL; LYMPH % 28.9 % (9.0-44.0); LYMPHOCYTE # 1.7 TH/MM3 (1.0-4.8); MEAN CORPUSCULAR HEMOGLOBIN 29.7 PG (27.0-34.0); MEAN CORPUSCULAR HGB CONC 34.2 % (32.0-36.0); MONO % 11.6 % (0.0-8.0); NEUT % 56.9 % (16.0-70.0); PLATELET COUNT 268 TH/MM3 (150-450); RED BLOOD COUNT 4.68 MIL/MM3 (4.00-5.30); RED CELL DISTRIBUTION WIDTH 13.4 % (11.6-17.2); WHITE BLOOD COUNT 5.8 TH/MM3 (4.0-11.0)
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
--- NOTE | 2016-04-08 22:54 | RADRPT ---
EXAM DATE/TIME: 04/08/2016 22:37 [place] COMPARISON: CT BRAIN W/O CONTRAST, March 24, 2016, 20:31. INDICATIONS : Altered mental status and head trauma. RADIATION DOSE: 56.35 CTDIvol (mGy) MEDICAL HISTORY : Shingles. Cardiovascular disease Hypertension. SURGICAL HISTORY : None. ENCOUNTER: Initial ACUITY: 1 day PAIN SCALE: 5/10 LOCATION: cranial TECHNIQUE: Multiple contiguous axial images were obtained of the head. Using automated exposure control and adj ustment of the mA and/or kV according to patient size, radiation dose was kept as low as reasonably a chievable to obtain optimal diagnostic quality images. FINDINGS: CEREBRUM: The ventricles are normal for age. No evidence of midline shift, mass lesion, hemorrhage or acute in farction. No extra-axial fluid collections are seen. POSTERIOR FOSSA: The cerebellum and brainstem are intact. The 4th ventricle is midline. The cerebellopontine angle i s unremarkable. EXTRACRANIAL: The visualized portion of the orbits is intact. SKULL: The calvaria is intact. No evidence of skull fracture. CONCLUSION: Normal examination. Michael Guzman MD on April 08, 2016 at 22:52 Board Certified Radiologist. This report was verified electronically.
[2016-04-08 23:00] LABS: ACETAMINOPHEN 7.1 MCG/ML (10.0-30.0); ALKALINE PHOSPHATASE 55 U/L (45-117); ALT (GPT) 15 U/L (10-53); AST (GOT) 6 U/L (15-37); BLOOD UREA NITROGEN 15 MG/DL (7-18); GLOMERULAR FILTRATION RATE 77 ML/MIN (>89); TOTAL BILIRUBIN ADULT 0.3 MG/DL (0.2-1.0)
[2016-04-08 23:01] LABS: ANION GAP 9 MEQ/L (5-15); BICARBONATE 26.1 MEQ/L (21.0-32.0); CHLORIDE 106 MEQ/L (98-107); SODIUM (NA) 141 MEQ/L (136-145)
[2016-04-09 03:28] VITALS: BP 145/79; PULSE 81; RESP 16; O2SAT 98
[2016-04-09 03:55] VITALS: BP 173/97; PULSE 93; RESP 20; TEMP 98.4; O2SAT 95
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
[2016-04-09] MEDS ORDERED: ALUMINUM/MAGNESIUM/SIMETH 30 ML CUP PO PRN (14:30)
[2016-04-09] MEDS ORDERED: MAGNESIUM HYDROXIDE SUSP 30 ML CUP PO PRN (14:30)
[2016-04-09] MEDS ORDERED: ACETAMINOPHEN 325 MG TAB PO PRN (14:30)
[2016-04-09 14:41] VITALS: BP 168/84; PULSE 76; RESP 18; O2SAT 95
[2016-04-09 15:13] VITALS: BP 137/94; PULSE 86; RESP 18; O2SAT 97
[2016-04-09 15:14] VITALS: BP 137/94; PULSE 86; RESP 18; O2SAT 97
[2016-04-09 16:14] VITALS: BP 132/99; PULSE 89; RESP 18; TEMP 98.6; O2SAT 97
[2016-04-09] MEDS: QUEtiapine FUMARATE 25 MG TAB PO SCH (21:00)
[2016-04-09] MEDS: lamoTRIgine 100 MG TAB PO SCH (21:00)
[2016-04-09] MEDS ORDERED: traZODone HCL 100 MG TAB PO SCH (21:00)
[2016-04-09] MEDS: ZIPRASIDONE HCL 80 MG CAP PO SCH (21:00)
[2016-04-10 06:22] VITALS: BP 126/95; PULSE 86; RESP 16; TEMP 98.4; O2SAT 97
[2016-04-10] MEDS ORDERED: diphenhydrAMINE HCL 50 MG/ML VIAL ONE (07:37)
[2016-04-10] MEDS ORDERED: diphenhydrAMINE HCL 50 MG/ML VIAL IM STA (07:39)
[2016-04-10] MEDS ORDERED: LORazepam 2 MG/ML VIAL ONE (07:39)
[2016-04-10] MEDS ORDERED: LORazepam 2 MG/ML VIAL IM STA (07:39)
[2016-04-10 08:07] LABS: ANION GAP 8 MEQ/L (5-15); BICARBONATE 25.5 MEQ/L (21.0-32.0); BLOOD UREA NITROGEN 11 MG/DL (7-18); CHLORIDE 105 MEQ/L (98-107); GLOMERULAR FILTRATION RATE 76 ML/MIN (>89); POTASSIUM 3.8 MEQ/L (3.5-5.1); SODIUM (NA) 138 MEQ/L (136-145)
[2016-04-10 08:09] LABS: LDL CHOLESTEROL 129 MG/DL (0-99)
[2016-04-10] MEDS: ZIPRASIDONE HCL 80 MG CAP PO SCH ×2 (09:00→21:40)
[2016-04-10] MEDS: lamoTRIgine 100 MG TAB PO SCH ×2 (09:00→21:40)
[2016-04-10] MEDS ORDERED: MAGNESIUM HYDROXIDE SUSP 30 ML CUP PO PRN (09:45)
[2016-04-10] MEDS ORDERED: diphenhydrAMINE HCL 50 MG CAP PO PRN (09:45)
[2016-04-10] MEDS ORDERED: ACETAMINOPHEN 325 MG TAB PO PRN (09:45)
[2016-04-10] MEDS ORDERED: ALUMINUM/MAGNESIUM/SIMETH 30 ML CUP PO PRN (09:45)
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
[2016-04-10] MEDS ORDERED: PILL SPLITTER OTHER PRN (10:30)
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
[2016-04-10 16:07] LABS: HEMOGLOBIN A1a 0.9 %; HEMOGLOBIN A1b 0.7 %; HEMOGLOBIN LA1C 2.1 %; HEMOGLOBIN P3 3.7 %
[2016-04-10 19:00] VITALS: BP 115/49; PULSE 80; RESP 16; TEMP 97.8; O2SAT 99
[2016-04-10] MEDS: traZODone HCL 50 MG TAB PO SCH (21:40)
[2016-04-10] MEDS: QUEtiapine FUMARATE 25 MG TAB PO SCH (21:40)
[2016-04-11 05:33] VITALS: BP 123/77; PULSE 80; RESP 17; TEMP 97.7
[2016-04-11] MEDS ORDERED: FUMARATE PO SCH (09:00)
[2016-04-11] MEDS: ZIPRASIDONE HCL 80 MG CAP PO SCH (09:00)
[2016-04-11] MEDS: lamoTRIgine 100 MG TAB PO SCH ×2 (09:00→22:25)
--- NOTE | 2016-04-11 11:00 | HHI.PYPN ---
Subjective Remarks Patient seen this morning in day room with nurse Rizwan, patient calm though somewhat intense saying "I'm sorry" when sharing with her the meeting schedule this after her she refused to acknowledge or see her 's name. Patient overall compliant with medication. She continues confused and disorganized. Need to discuss medications and placement issues with them Review of Systems Except as stated in HPI: all other systems reviewed are Neg Objective Alert: Yes [place]: Person, Place (Knows she is at [place]) Mood: Other (withdrawn) Affect: Blunted Memory Intact: Comment (very poor) Hallucinations: Auditory (reported hearing voices but content not disclosed) Delusions: Yes (believes she is here to ) Delusion Type: Paranoid (mildly) Suicidal: Ideation (not assessed) Homicidal: Ideation (not assessed) Insight/Judgement Very poor Vitals/IOs Vital Signs Date Time Temp Pulse Resp B/P Pulse Ox O2 Delivery O2 Flow Rate FiO2 04/11/16 05:33 97.7 80 17 123/77 04/10/16 19:00 99 04/09/16 15:14 Room Air Intake and Output 04/10/16 04/10/16 04/11/16 08:00 16:00 00:00 Intake Total 120 ml 840 ml Output Total 1 ml Balance -1 ml 120 ml 840 ml Assessment & Plan Problem List: (1) Schizoaffective disorder, bipolar type ICD Code: F25.0 (2) History of traumatic brain injury ICD Code: Z87.820 Assessment & Plan Estimated LOS: days patient continues confused disorganized labile with no significant insight into issues. We'll meet with this afternoon Justification for Cont. Inpt. At this time patient was significantly decompensated placed in a lower level of care Discharge Planning To be determined Request HC Surrog/Guard Advoc?: Yes Nino Gabriel MD Apr 11, 2016 11:00
[2016-04-11] MEDS: LORazepam 2 MG/ML VIAL IM PRN (16:22)
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
[2016-04-11 17:41] LABS: BACTERIA, URINE RARE /hpf; BLOOD, URINE NEG (NEG); COMMENT (UR) CULTURE INDICATED; CULTURE IF INDICATED CULTURE INDICATED; GLUCOSE,URINE NEG (NEG); KETONE, URINE 10 mg/dL (NEG); MUCUS URINE MANY /lpf (OCC); NITRITE,URINE NEG (NEG); PH, URINE 5.5 (5.0-8.5); SQUAMOUS EPITHELIAL CELL URINE 1 /hpf (0-5); URINE COLOR YELLOW (YELLW/STRAW)
[2016-04-11 17:42] LABS: AMPHETAMINE, URINE NEG (NEG); BARBITURATES, URINE NEG (NEG); COCAINE, URINE NEG (NEG)
[2016-04-11 18:37] VITALS: BP 128/91; PULSE 89; RESP 18; TEMP 99; O2SAT 95
--- NOTE | 2016-04-11 19:31 | MG ---
cc: KAMLA FORMAN M.D., JOSE R. MD Lab No: Date: 04/11/16 Age: 56 Sex: F Race: REQUESTING Dr. Zamarripa. An EEG was obtained on this 56-year-old patient with a history of a catatonic-like state. The patient is awake during the EEG. MEDICATIONS 1. Trazodone. 2. Seroquel. This EEG is primarily showing 10-11 per second alpha activity in the central and posterior head regions. There are 15-25 per second rhythms centrally and frontally. The background is reactive. The patient drowses then there is more widespread beta activity and some theta rhythms. Photic stimulation disclosed some driving response bilaterally. Hyperventilation was not performed. INTERPRETATION Normal predominantly awake EEG. MD IDRIS Roberts/BJF /6:30 PM /7:29 PM
[2016-04-11] MEDS: HALOPERIDOL LACTATE 5 MG/ML AMP IM SCH (21:00)
[2016-04-11] MEDS: traZODone HCL 50 MG TAB PO SCH (21:00)
[2016-04-11] MEDS: QUEtiapine FUMARATE 25 MG TAB PO SCH (22:25)
[2016-04-11] MEDS: HALOPERIDOL 5 MG TAB PO SCH (22:25)
[2016-04-12 05:04] VITALS: BP 146/88; PULSE 73; RESP 15; TEMP 98.1
[2016-04-12] MEDS: lamoTRIgine 100 MG TAB PO SCH ×2 (09:00→19:52)
[2016-04-12] MEDS: HALOPERIDOL 5 MG TAB PO SCH ×2 (09:00→19:52)
[2016-04-12] MEDS: HALOPERIDOL LACTATE 5 MG/ML AMP IM SCH ×2 (09:55→21:00)
--- NOTE | 2016-04-12 12:04 | HHI.PYPN ---
Subjective Remarks Patient seen in day room with , who is helping her eat lunch. She is overall cooperative with him though he attends appears to be somewhat controlling and demanding of her. Patient showing mixed compliance with medication did need an IM of Haldol as replacement for her refusal to take the oral. For now Continue treatment no change Review of Systems Except as stated in HPI: all other systems reviewed are Neg Objective Alert: Yes [place]: Person, Place (Knows she is at [place]) Mood: Other (withdrawn) Affect: Blunted Memory Intact: Comment (very poor) Hallucinations: Auditory (reported hearing voices but content not disclosed) Delusions: Yes (believes she is here to ) Delusion Type: Paranoid (mildly) Suicidal: Ideation (not assessed) Homicidal: Ideation (not assessed) Insight/Judgement Very poor Labs Test 04/11/16 16:30 Urine Color YELLOW Urine Turbidity HAZY Urine pH 5.5 Urine Specific [place] 1.028 Urine Protein TRACE mg/dL Urine Glucose (UA) NEG mg/dL Urine Ketones 10 mg/dL Urine Occult Blood NEG Urine Nitrite NEG Urine Bilirubin NEG Urine Urobilinogen LESS THAN 2.0 MG/DL Urine Leukocyte Esterase SMALL Urine RBC 2 /hpf Urine WBC 14 /hpf Urine Squamous Epithelial 1 /hpf Cells Urine Amorphous Sediment RARE Urine Bacteria RARE /hpf Urine Mucus MANY /lpf Microscopic Urinalysis Comment CULTURE INDICATED Urine Opiates Screen NEG Urine Barbiturates Screen NEG Urine Amphetamines Screen NEG Urine Benzodiazepines Screen NEG Urine Cocaine Screen NEG Urine Cannabinoids Screen NEG Date/Time Procedure Status Source Growth 04/11/16 16:30 Urine Culture Received Urine Clean Catch Pending Vitals/IOs Vital Signs Date Time Temp Pulse Resp B/P Pulse Ox O2 Delivery O2 Flow Rate FiO2 04/12/16 05:04 98.1 73 15 146/88 04/11/16 18:37 95 04/09/16 15:14 Room Air Intake and Output 04/11/16 04/11/16 04/12/16 08:00 16:00 00:00 Intake Total 120 ml 670 ml Balance 120 ml 670 ml Assessment & Plan Problem List: (1) Schizoaffective disorder, bipolar type ICD Code: F25.0 (2) History of traumatic brain injury ICD Code: Z87.820 Assessment & Plan Estimated LOS: days patient continues confused disoriented with no insight, at times some behavioral issues. Also showing mixed compliance with medication Justification for Cont. Inpt. At this time patient would severely decompensate if placed in a lower level of care Discharge Planning To be determined Request HC Surrog/Guard Advoc?: Yes Nino Gabriel MD Apr 12, 2016 12:04
[2016-04-12] MEDS: LORazepam 2 MG/ML VIAL IM PRN (14:40)
[2016-04-12 19:27] VITALS: BP 148/84; PULSE 92; RESP 16; TEMP 98; O2SAT 95
[2016-04-12] MEDS: QUEtiapine FUMARATE 25 MG TAB PO SCH (19:52)
[2016-04-12] MEDS: traZODone HCL 50 MG TAB PO SCH (21:00)
[2016-04-13 05:53] VITALS: BP 117/62; PULSE 85; RESP 18; TEMP 98.9; O2SAT 98
[2016-04-13] MEDS: HALOPERIDOL 5 MG TAB PO SCH ×2 (09:00→20:44)
[2016-04-13] MEDS: lamoTRIgine 100 MG TAB PO SCH ×2 (09:00→20:44)
[2016-04-13] MEDS: HALOPERIDOL LACTATE 5 MG/ML AMP IM SCH ×2 (09:00→21:00)
--- NOTE | 2016-04-13 15:20 | HHI.PYPN ---
Subjective Remarks Pt seen and discussed with staff. Pt continues to exhibit bizarre behavior and selective mutism. She appears internally preoccupied and interacts minimally with MD. Staff report that pt visited with today without incident and exhibited increased social interactions with . Objective Alert: Yes [place]: Person, Place (Knows she is at [place]) Mood: Other (withdrawn) Affect: Blunted Memory Intact: Comment (very poor) Hallucinations: Auditory (reported hearing voices but content not disclosed) Delusions: Yes (believes she is here to ) Delusion Type: Paranoid (mildly) Suicidal: Ideation (not assessed) Homicidal: Ideation (not assessed) Insight/Judgement poor Labs Date/Time Procedure Status Source Growth 04/11/16 16:30 Urine Culture - Final Complete Urine Clean Catch Enterococcus Faecalis Vitals/IOs Vital Signs Date Time Temp Pulse Resp B/P Pulse Ox O2 Delivery O2 Flow Rate FiO2 04/13/16 05:53 98.9 85 18 117/62 98 04/09/16 15:14 Room Air Intake and Output 04/12/16 04/12/16 04/13/16 08:00 16:00 00:00 Intake Total 120 ml 480 ml 960 ml Balance 120 ml 480 ml 960 ml Assessment & Plan Problem List: (1) Schizoaffective disorder, bipolar type ICD Code: F25.0 (2) History of traumatic brain injury ICD Code: Z87.820 Assessment & Plan Continue current tx plan. U/A positive for e.coli and hospitalist notified. Estimated LOS: days Justification for Cont. Inpt. psychosis Request HC Surrog/Guard Advoc?: Yes Corine Hernandez MD Apr 13, 2016 15:20
[2016-04-13] MEDS: LORazepam 1 MG TAB PO PRN (15:30)
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
[2016-04-13] MEDS: QUEtiapine FUMARATE 25 MG TAB PO SCH (20:44)
[2016-04-13] MEDS: traZODone HCL 50 MG TAB PO SCH (20:44)
[2016-04-13] MEDS: CIPROFLOXACIN 250 MG TAB PO SCH (21:00)
[2016-04-14] MEDS: LORazepam 1 MG TAB PO PRN (01:55)
[2016-04-14 05:05] VITALS: BP 122/73; PULSE 94; RESP 18; TEMP 98; O2SAT 95
[2016-04-14] MEDS: lamoTRIgine 100 MG TAB PO SCH ×2 (08:04→21:23)
[2016-04-14] MEDS: CIPROFLOXACIN 250 MG TAB PO SCH ×2 (08:04→21:23)
[2016-04-14] MEDS: HALOPERIDOL 5 MG TAB PO SCH ×2 (08:16→21:23)
[2016-04-14] MEDS: HALOPERIDOL LACTATE 5 MG/ML AMP IM SCH ×2 (08:17→21:00)
[2016-04-14] MEDS: LORazepam 2 MG/ML VIAL IM PRN (09:17)
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
--- NOTE | 2016-04-14 15:32 | HHI.PYPN ---
Subjective Remarks Pt seen and discussed with staff. Pt was agitated last night and accused staff of putting cocaine n her medications. She was suspicious of medications She received haldol IM. Pt has since been calm and more cooperative. She is interacting with staff and peers. No SI/HI. Objective Alert: Yes [place]: Person, Place (Knows she is at [place]) Mood: Other (withdrawn) Affect: Blunted Memory Intact: Comment (very poor) Hallucinations: Auditory (reported hearing voices but content not disclosed) Delusions: Yes (believes she is here to ) Delusion Type: Paranoid (mildly) Suicidal: Ideation (not assessed) Homicidal: Ideation (not assessed) Insight/Judgement limited Labs Date/Time Procedure Status Source Growth 04/11/16 16:30 Urine Culture - Final Complete Urine Clean Catch Enterococcus Faecalis Vitals/IOs Vital Signs Date Time Temp Pulse Resp B/P Pulse Ox O2 Delivery O2 Flow Rate FiO2 04/14/16 05:05 98.0 94 18 122/73 95 Intake and Output 04/13/16 04/13/16 04/14/16 08:00 16:00 00:00 Intake Total 0 ml 0 ml Balance 0 ml 0 ml Assessment & Plan Problem List: (1) Schizoaffective disorder, bipolar type ICD Code: F25.0 (2) History of traumatic brain injury ICD Code: Z87.820 Assessment & Plan Continue to encourage medication compliance. Continue current tx plan. Estimated LOS: days Justification for Cont. Inpt. impairments in reality construction, safety Request HC Surrog/Guard Advoc?: Yes Corine Hernandez MD Apr 14, 2016 15:32
[2016-04-14 19:26] VITALS: BP 153/69; PULSE 94; RESP 16; TEMP 98.7
[2016-04-14 19:27] VITALS: BP 129/71; PULSE 85; RESP 16; TEMP 98.6
[2016-04-14] MEDS: QUEtiapine FUMARATE 25 MG TAB PO SCH (21:23)
[2016-04-14] MEDS: traZODone HCL 50 MG TAB PO SCH (21:23)
[2016-04-15] MEDS: HALOPERIDOL LACTATE 5 MG/ML AMP IM SCH (09:00)
[2016-04-15] MEDS: lamoTRIgine 100 MG TAB PO SCH (09:00)
[2016-04-15] MEDS: CIPROFLOXACIN 250 MG TAB PO SCH (09:00)
[2016-04-15] MEDS: HALOPERIDOL 5 MG TAB PO SCH (09:00)
[2016-04-15] MEDS: LORazepam 2 MG/ML VIAL IM PRN (12:30)
[2016-04-15] MEDS ORDERED: CIPR250T52 PO (14:28)
[2016-04-15] MEDS ORDERED: QUET1TAB7 PO (14:28)
[2016-04-15] MEDS ORDERED: LAMO100 PO (14:28)
[2016-04-15] MEDS ORDERED: HALO5TAB PO (14:28)
[2016-04-15] MEDS ORDERED: TRAZ150T75 PO (14:28)
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
== END 2016-04-15 16:15 | disposition home or self-care (01) | DRG 885 ==
LOC: NEPA 21:07 → NEDA 04-09 14:34 → H250 04-09 15:56
PROVIDERS: ADMIT Psychiatry & Neurology Psychiatry; ATTEND Psychiatry & Neurology Psychiatry
DX: F25.0 Schizoaffective disorder, bipolar type (principal); N39.0 Urinary tract infection, site not specified; I10 Essential (primary) hypertension; Z87.820 Personal history of traumatic brain injury; J44.9 Chronic obstructive pulmonary disease, unspecified; J45.909 Unspecified asthma, uncomplicated; V89.2XXD Person injured in unspecified motor-vehicle accident, traffic, subsequent encounter; K21.9 Gastro-esophageal reflux disease without esophagitis; F17.210 Nicotine dependence, cigarettes, uncomplicated; Z86.73 Personal history of transient ischemic attack (TIA), and cerebral infarction without residual deficits; Z91.14 Patient's other noncompliance with medication regimen; F43.10 Post-traumatic stress disorder, unspecified; B95.2 Enterococcus as the cause of diseases classified elsewhere; E78.00 Pure hypercholesterolemia, unspecified
CPT/HCPCS: 70450; 80048; 80053; 80061; 80307; 80320; 80329; 81001; 83036; 85025; 87077; 87086; 87186; 95819; G0480; J1200; J1630; J2060

== ENCOUNTER 2016-07-31 23:03 | Emergency (ER) | payer OTHER ==
[~2016-07-31] VITALS: Ht 165.1 cm; Wt 65.0 kg
[~2016-07-31 23:03] MED LIST changes: +CIPR250T52 PO; +HALO5TAB PO
[2016-07-31 23:30] VITALS: BP 145/90; PULSE 77; RESP 16; TEMP 98.5; O2SAT 97
[2016-07-31] MEDS ORDERED: PROZ20CA11 PO (23:30)
[2016-07-31] MEDS ORDERED: SERO200T PO (23:30)
[2016-07-31] MEDS ORDERED: ZYPR5TAB PO (23:30)
[2016-07-31] MEDS ORDERED: SERO100T PO (23:30)
[2016-07-31 23:52] LABS: BASOPHIL % 0.7 % (0.0-2.0); EOSINOPHIL # 0.3 TH/MM3 (0-0.4); EOSINOPHIL % 5.4 % (0.0-4.0); HEMATOCRIT 37.3 % (35.0-46.0); HEMO FLAGS DIFF FINAL; LYMPHOCYTE # 2.1 TH/MM3 (1.0-4.8); MEAN CELL VOLUME 88.2 FL (80.0-100.0); MEAN CORPUSCULAR HEMOGLOBIN 29.7 PG (27.0-34.0); MEAN CORPUSCULAR HGB CONC 33.6 % (32.0-36.0); NEUT % 49.9 % (16.0-70.0); PLATELET COUNT 264 TH/MM3 (150-450); RED BLOOD COUNT 4.23 MIL/MM3 (4.00-5.30); RED CELL DISTRIBUTION WIDTH 13.9 % (11.6-17.2); WHITE BLOOD COUNT 6.1 TH/MM3 (4.0-11.0)
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
[2016-08-01] MEDS ORDERED: ACETAMINOPHEN 500 MG CPLT PO ONE (00:15)
[2016-08-01 00:16] LABS: ALT (GPT) 21 U/L (10-53); ANION GAP 7 MEQ/L (5-15); AST (GOT) 18 U/L (15-37); BLOOD UREA NITROGEN 20 MG/DL (7-18); CHLORIDE 108 MEQ/L (98-107); GLOMERULAR FILTRATION RATE 55 ML/MIN (>89); POTASSIUM 3.6 MEQ/L (3.5-5.1); SODIUM (NA) 141 MEQ/L (136-145)
[2016-08-01 00:18] LABS: ALKALINE PHOSPHATASE 77 U/L (45-117); TOTAL BILIRUBIN ADULT 0.1 MG/DL (0.2-1.0)
[2016-08-01 01:08] LABS: AMPHETAMINE, URINE NEG (NEG); BARBITURATES, URINE NEG (NEG); COCAINE, URINE NEG (NEG)
[2016-08-01 07:15] VITALS: BP 123/56; PULSE 68; RESP 16; O2SAT 96
[2016-08-01 07:51] VITALS: BP 130/80; PULSE 92; RESP 18; TEMP 98.7; O2SAT 99
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
== END 2016-08-01 09:26 | disposition home or self-care (01) ==
LOC: NEPE 23:03 → NEPJ 08-01 09:26
DX: F25.0 Schizoaffective disorder, bipolar type (principal); J45.909 Unspecified asthma, uncomplicated; J44.9 Chronic obstructive pulmonary disease, unspecified; I10 Essential (primary) hypertension; Z72.0 Tobacco use; Z87.820 Personal history of traumatic brain injury
CPT/HCPCS: 80053; 80307; 85025; 99284

== ENCOUNTER 2017-08-29 14:48 | Emergency (ER) | payer OTHER ==
[~2017-08-29 14:48] MED LIST changes: -CIPR250T52 PO; -FUMARATE PO; -GEOD60CA PO; -GEOD80CA PO; -HALO5TAB PO; +PROZ20CA11 PO; -QUET1TAB7 PO; +SERO100T PO; +SERO200T PO; -TRAZ100T4 PO; -TRAZ150T75 PO; +ZYPR5TAB PO
[2017-08-29 14:56] VITALS: BP 163/83; PULSE 88; RESP 16; TEMP 98.6; O2SAT 96
[2017-08-29] MEDS ORDERED: SERO50TA PO (15:40)
--- NOTE | 2017-08-29 15:59 | RADRPT ---
EXAM DATE: 08/29/2017 3:16 PM EDT AGE/SEX: 57 years / Female INDICATIONS: Left medial ankle pain with swelling post fall. CLINICAL DATA: This is the patient's initial encounter. Patient reports that signs and symptoms have been present for 1 day and indicates a pain score of 5/10. MEDICAL/SURGICAL HISTORY: . Shingles. Cardiovascular disease Hypertension None. COMPARISON: No prior exams available for comparison. FINDINGS: Generalized soft tissue swelling. Anatomic alignment. No evidence for fracture. CONCLUSION: Negative for fracture or dislocation. Followup in 7-10 days is suggested if symptoms persist. Electronically signed by: Saúl Aguilar MD 08/29/2017 3:58 PM EDT
[2017-08-29] MEDS ORDERED: ACETAMINOPHEN/HYDROcodone 325 MG/5 MG TAB PO ONE (16:00)
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
[2017-08-29] MEDS ORDERED: IBUP1TAB7 PO (16:23)
== END 2017-08-29 16:40 | disposition home or self-care (01) ==
LOC: PHED 14:48 → PHEFT 16:40
DX: S93.492A Sprain of other ligament of left ankle, initial encounter (principal); W13.3XXA Fall through floor, initial encounter; I10 Essential (primary) hypertension; J44.9 Chronic obstructive pulmonary disease, unspecified; F31.9 Bipolar disorder, unspecified; F17.210 Nicotine dependence, cigarettes, uncomplicated; Z86.73 Personal history of transient ischemic attack (TIA), and cerebral infarction without residual deficits; Z79.899 Other long term (current) drug therapy
CPT/HCPCS: 73610; 99283; L1906